=== PATIENT | female | born 1980 | race African-American/Black ===

== ENCOUNTER 2019-12-20 14:22 | Emergency (ER) | payer OTHER ==
[~2019-12-20] VITALS: Ht 160 cm; Wt 74.8 kg
[~2019-12-20 14:22] MED LIST: ACCUNEB SO1.25 MG/1; AMOXICILLIN875 MG PO; BENTYL 20 MG TA20 M1 PO; FLONASE 0.05%50 MCG NASAL; FLONASE16 GM INH; LIORESAL 10 MG10 MG PO; LYRICA 50 MG50 MG PO; NORCO 5-325 TA1 EACH PO; ONDANSETRON HCL4 M2 PO; PREDNISONE50 MG PO; PROMETHAZINE-C120 ML PO
[2019-12-20] MEDS ORDERED: CYCLOBENZAPRINE5 MG PO (17:07)
[2019-12-20] MEDS ORDERED: NORCO 5-325 TA1 EAC1 PO (17:07)
[2019-12-20 17:49] VITALS: BP 106/62
== END 2019-12-20 17:25 | disposition home or self-care (01) ==
LOC: ER 14:22
DX: S06.0X0A Concussion without loss of consciousness, initial encounter (principal); M54.2 Cervicalgia; R04.0 Epistaxis; J45.909 Unspecified asthma, uncomplicated; M79.7 Fibromyalgia; F17.210 Nicotine dependence, cigarettes, uncomplicated; Z88.8 Allergy status to other drugs, medicaments and biological substances; V89.2XXA Person injured in unspecified motor-vehicle accident, traffic, initial encounter; Y93.89 Activity, other specified; Y92.89 Other specified places as the place of occurrence of the external cause; Y99.8 Other external cause status

== ENCOUNTER 2020-01-11 14:23 | Emergency (ER) | payer OTHER ==
[~2020-01-11] VITALS: Ht 160 cm; Wt 70.3 kg
[~2020-01-11 14:23] MED LIST changes: +CYCLOBENZAPRINE5 MG PO; +NORCO 5-325 TA1 EAC1 PO
[2020-01-11 16:15] VITALS: BP 119/80
== END 2020-01-11 16:15 | disposition home or self-care (01) ==
LOC: ER 14:23
DX: B34.9 Viral infection, unspecified (principal); R05 Cough; J45.909 Unspecified asthma, uncomplicated; M79.7 Fibromyalgia; Z88.6 Allergy status to analgesic agent; Z20.828 Contact with and (suspected) exposure to other viral communicable diseases